=== PATIENT | female | born 1980 | race Caucasian/White ===

== ENCOUNTER 2021-09-02 12:45 | Emergency (ER) | payer SELFPAY | END 2021-09-02 13:49 | disposition home or self-care (01) | LOC: ERS 12:45 | DX: M26.602 Left temporomandibular joint disorder, unspecified (principal); Z87.891 Personal history of nicotine dependence | CPT/HCPCS: 99283 ==

== ENCOUNTER 2021-09-09 19:48 | Emergency (ER) | payer SELFPAY ==
[2021-09-09] MEDS ORDERED: Dexamethasone 4 MG TAB ONE (20:10)
[2021-09-09] MEDS ORDERED: Famotidine 20 MG TAB ONE (20:10)
== END 2021-09-09 21:40 | disposition home or self-care (01) ==
LOC: ERS 19:48
DX: T78.1XXA Other adverse food reactions, not elsewhere classified, initial encounter (principal); R22.1 Localized swelling, mass and lump, neck; H02.849 Edema of unspecified eye, unspecified eyelid; Z87.891 Personal history of nicotine dependence
CPT/HCPCS: 99284; J8540

== ENCOUNTER 2021-09-21 08:06 | Emergency (ER) | payer SELFPAY ==
[2021-09-21 08:56] LABS: #Basophils 0.1 thou/uL (0.0-0.2); #Eosinphils 0.2 thou/uL (0.0-0.7); #Lymphocytes 1.4 thou/uL (1.20-3.40); #Monocytes 0.6 thou/uL (0.11-0.59); #Neutrophils 5.8 thou/uL (1.40-6.50); %Basophils 0.7 % (0.0-1.0); %Eosinophils 2.1 % (0.0-10.0); %Lymphocytes 17.8 % (21.0-51.0); %Monocytes 7.1 % (0.0-10.0); %Neutrophils 72.3 % (42.0-75.0); Hemoglobin 12.6 g/dL (12.0-16.0); Mean Corpuscular HGB CONC 32.4 g/dL (32.0-36.0); Mean Corpuscular Hemoglobin 29.4 pg (27.0-31.0); Mean Corpuscular Volume 90.5 fL (78.0-98.0); Mean Platelet Volume 9.5 fL (7.4-10.4); Platelet Count 208 thou/uL (130-400); RBC Distribution Width 13.4 % (11.5-14.5); Red Blood Cell (RBC) Count 4.28 mill/uL (4.20-5.40)
[2021-09-21 09:06] LABS: BHCG - Serum Negative (NEGATIVE); Pregs Control Background? CLEAR/WHITE (CLR/WHITE); Pregs Control Bar Appear? YES (CONTROL BAR)
[2021-09-21 09:10] LABS: ALT (SGPT) 8 U/L (8-55); AST (SGOT) 8 U/L (5-34); Albumin 3.9 g/dL (3.5-5.0); Alkaline Phosphatase 72 U/L (40-110); Anion Gap 12 mmol/L (10-20); BUN (Urea Nitrogen) 15 mg/dL (7.0-18.7); Bilirubin, Total 0.3 mg/dL (0.2-1.2); Calc. Creatinine Clearance 0 mL/min (70-130); Calcium 8.9 mg/dL (7.8-10.44); Carbon Dioxide 21 mmol/L (22-29); Chloride 110 mmol/L (98-107); Glucose 113 mg/dL (70-105); Potassium 3.7 mmol/L (3.5-5.1); Protein, Total 6.9 g/dL (6.0-8.3); Sodium 139 mmol/L (136-145)
[2021-09-21] MEDS ORDERED: Iopamidol 370 76% 100 ML VIAL ONE (09:43)
== END 2021-09-21 13:38 | disposition home or self-care (01) ==
LOC: ERS 08:06
DX: R07.9 Chest pain, unspecified (principal); Z87.891 Personal history of nicotine dependence
CPT/HCPCS: 36415; 71045; 71275; 74174; 80053; 84484; 84703; 85025; 93005; Q9967